=== PATIENT | female | born 1990 | race Caucasian/White ===

== ENCOUNTER → 2016-07-24 | Outpatient (CLI) | payer OTHER ==
[~2016-07-24] MED LIST: FISHOIL XX; MOTR200T44 PO; PNV-CAP5 PO; TUMS500C PO; TYLE325T5 PO
[2016-07-25 13:57] LABS: CONTROL LINE INT CTR LINE PRESENT; HIV SCRN NEGATIVE (NEGATIVE); HIV SCRN1 NEGATIVE (NEGATIVE)
== END ==
LOC: M WUC 16:25
PROVIDERS: ATTEND Specialist
DX: Z12.4 Encounter for screening for malignant neoplasm of cervix (principal); R87.610 Atypical squamous cells of undetermined significance on cytologic smear of cervix (ASC-US)
CPT/HCPCS: 36415; 86780; 87340; 87491; 87591; 87806; G0123

== ENCOUNTER 2016-08-18 18:19 | Emergency (ER) | payer OTHER ==
[2016-08-18] MEDS ORDERED: ONDANSETRON 4 MG ORAL DISINTEGRATING TAB (S0181) As Ordered ONE (19:31)
[2016-08-18] MEDS ORDERED: METHOCARBAMOL 500 MG TAB As Ordered ONE (19:32)
[2016-08-18] MEDS ORDERED: ACETAMINOPHEN 325 MG TAB As Ordered ONE (19:32)
--- NOTE | 2016-08-18 20:40 | REPUSA ---
CT of the cervical spine Clinical history: injury. Technique: Multiple axial CT images were obtained through the cervical spine without administration o f contrast. Coronal and sagittal 3-D reconstructed images were also obtained. Comparison: None. Findings: The cervical vertebral bodies are in satisfactory positioning and alignment. No fractures or dislocat ions are demonstrated. The odontoid process is intact. Intervertebral disc spaces are well-maintained . There is no evidence of facet subluxation. The neural foramen appear grossly patent. The cervical c ranial junction is intact. The cervical spinal canal demonstrates normal caliber and contour without evidence of spinal stenosis. The surrounding soft tissues are within normal limits. Impression: Unremarkable CT examination of the cervical spine.
--- NOTE | 2016-08-18 20:40 | REPUSA ---
CT of the head Clinical history: injury. Technique: Multiple axial CT images were obtained through the head without administration of contrast . Findings: The ventricles and sulci are symmetric bilaterally. There is no evidence of acute hemorrhag e or infarct. There is no midline shift, mass effect, or extra-axial fluid collection. The osseous st ructures are unremarkable. The visualized paranasal sinuses and mastoid air cells are clear. Impression: Negative study.
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
--- NOTE | 2016-08-18 21:27 | EDDOCDS ---
Physician Documentation [facility] Name: Diana Park Age: 25 yrs Sex: Female : 1990 Arrival Date: 08/18/2016 Time: 18:19 Bed I2 / M2 Private MD: Missy Serrano Disposition: 08/18/16 21:13 Discharged to Home/Self Care. Impression: Unspecified injury of head, Cervicalgia, Sprain of unspecified parts of thorax - THORACIC SPINE. - Condition is Stable. - Discharge Instructions: Back Pain, Adult, Head Injury, Pediatric, Soft Tissue Injury of the Neck. - Prescriptions for Robaxin 500 mg Oral Tablet - take 2 tablet by ORAL route every 6 hours As needed; 40 tablet. - Medication Reconciliation, Local Pharmacy Hours form. - Follow up: Missy Serrano; When: 2 - 3 days; Reason: Recheck today's complaints, Continuance of care. - Problem is new. - Symptoms have improved. Historical: - Allergies: fenoprofen (Upset stomach); Tramadol HCl (Vomit); - Home Meds: 1. pentazocine-naloxone 50-0.5 mg oral tab 1 tab 2. tizanidine 4 mg oral cap as needed - PMHx: back pain; - PSHx: LEEP Procedure; Lymph Node removal in neck; - Immunization history: Last tetanus immunization: - up to date. - Social history: Smoking status: Patient states former smoker of tobacco. No barriers to communication noted, The patient speaks fluent Nepali, Speaks appropriately for age. - Family history: Not pertinent. - Last oral intake was: 1800 today. - : The pt / caregiver states he / she is not on anticoagulants. Home medication list is obtained from the patient. - Exposure Risk Screening:: None identified. 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 5 in. (165.10 cm) (R); Pain 7/10; 21:26 BP 125 / 68; Pulse 78; Resp 18; Temp 98(T); Pulse Ox 99% on R/A; Pain 0/10; rs3 18:21 Body Mass Index 24.13 (65.77 kg, 165.10 cm) lr2 Trauma Score (Adult): 18:37 Eye Response: spontaneous(1); Verbal Response: oriented(1); Motor Response: obeys kc3 commands(2); Systolic BP: > 89 mm Hg(4); Respiratory Rate: 10 to 29 per min(4); Melville Score: 15; Trauma Score: 12 MDM: 19:22 Acetaminophen Tablet 650 mg PO once ordered. ck7 19:22 Methocarbamol 1 grams PO once ordered. ck7 19:22 Apply Sonia Collar to Patient. ordered. ck7 19:24 CT Head Without Contrast Ordered. EDMS 19:24 CT Spine,Cervical W/o Contrast Ordered. EDMS 19:24 Spine, Thoracic 3 Views Ordered. EDMS 19:28 Ondansetron ODT Oral Disintegrating Tablet 4 mg PO once ordered. rs3 19:29 UCG by Nursing ordered. ck7 21:18 Financial registration complete. Point of Care Testing: Urine : 19:43 hCG Reading: Negative; mf4 Ranges: Administered Medications: 19:28 CANCELLED (Duplicate Order): Ondansetron 4 mg IVP once rs3 19:32 Drug: Acetaminophen 650 mg [acetaminophen 325 mg tablet (2 tabs)] Route: PO; mf4 19:33 Drug: Methocarbamol 1 grams [methocarbamol 500 mg tablet (2 tabs)] Route: PO; mf4 19:33 Drug: Ondansetron ODT 4 mg [ondansetron 4 mg disintegrating tablet (1 tabs)] Route: PO; mf4 Signatures: Dispatcher [employer] EDLuciano Umana RosemaryRN RN rs3 Yaniv Disla, RPA-C RPA-Cck7 Linda Stanley,RN RN kc3 Nish Padilla LPN mf4 The chart was reviewed and I authenticate all verbal orders and agree with the evaluation and treatment provided.Corrections: (The following items were deleted from the chart) 19:28 19:22 Ondansetron 4 mg IVP once ordered. ck7 rs3 MTDD
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
--- NOTE | 2016-08-20 22:28 | EDDOCDS ---
Physician Documentation [facility] Name: Diana Park Age: 25 yrs Sex: Female : 1990 Arrival Date: 08/18/2016 Time: 18:19 Bed I2 / M2 Private MD: Missy Serrano Disposition: 08/18/16 21:13 Discharged to Home/Self Care. Impression: Unspecified injury of head, Cervicalgia, Sprain of unspecified parts of thorax - THORACIC SPINE. - Condition is Stable. - Discharge Instructions: Back Pain, Adult, Head Injury, Pediatric, Soft Tissue Injury of the Neck. - Prescriptions for Robaxin 500 mg Oral Tablet - take 2 tablet by ORAL route every 6 hours As needed; 40 tablet. - Medication Reconciliation, Local Pharmacy Hours form. - Follow up: Missy Serrano; When: 2 - 3 days; Reason: Recheck today's complaints, Continuance of care. - Problem is new. - Symptoms have improved. Historical: - Allergies: fenoprofen (Upset stomach); Tramadol HCl (Vomit); - Home Meds: 1. pentazocine-naloxone 50-0.5 mg oral tab 1 tab 2. tizanidine 4 mg oral cap as needed - PMHx: back pain; - PSHx: LEEP Procedure; Lymph Node removal in neck; - Immunization history: Last tetanus immunization: - up to date. - Social history: Smoking status: Patient states former smoker of tobacco. No barriers to communication noted, The patient speaks fluent Chinese, Speaks appropriately for age. - Family history: Not pertinent. - Last oral intake was: 1800 today. - : The pt / caregiver states he / she is not on anticoagulants. Home medication list is obtained from the patient. - Exposure Risk Screening:: None identified. 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 5 in. (165.10 cm) (R); Pain 7/10; 21:26 BP 125 / 68; Pulse 78; Resp 18; Temp 98(T); Pulse Ox 99% on R/A; Pain 0/10; rs3 18:21 Body Mass Index 24.13 (65.77 kg, 165.10 cm) lr2 Trauma Score (Adult): 18:37 Eye Response: spontaneous(1); Verbal Response: oriented(1); Motor Response: obeys kc3 commands(2); Systolic BP: > 89 mm Hg(4); Respiratory Rate: 10 to 29 per min(4); [place] Score: 15; Trauma Score: 12 MDM: 19:22 Acetaminophen Tablet 650 mg PO once ordered. ck7 19:22 Methocarbamol 1 grams PO once ordered. ck7 19:22 Apply Sonia Collar to Patient. ordered. ck7 19:24 CT Head Without Contrast Ordered. EDMS 19:24 CT Spine,Cervical W/o Contrast Ordered. EDMS 19:24 Spine, Thoracic 3 Views Ordered. EDMS 19:28 Ondansetron ODT Oral Disintegrating Tablet 4 mg PO once ordered. rs3 19:29 UCG by Nursing ordered. ck7 21:18 Financial registration complete. zo 22:03 [facility] Payment Agreement was scanned into [employer] and attached to record. zo 22:04 [facility] was scanned into [employer] and attached to record. zo 02 10:05 T-Sheet-- Draft Copy was scanned into [employer] and attached to record. Point of Care Testing: Urine : 08/18 19:43 hCG Reading: Negative; mf4 Ranges: Administered Medications: 19:28 CANCELLED (Duplicate Order): Ondansetron 4 mg IVP once rs3 19:32 Drug: Acetaminophen 650 mg [acetaminophen 325 mg tablet (2 tabs)] Route: PO; mf4 19:33 Drug: Methocarbamol 1 grams [methocarbamol 500 mg tablet (2 tabs)] Route: PO; mf4 19:33 Drug: Ondansetron ODT 4 mg [ondansetron 4 mg disintegrating tablet (1 tabs)] Route: PO; mf4 Signatures: Dispatcher [employer] EDMS Estephania Mcgovern, Reg Reg gb Luciano Bravo Rosemary, RN RN rs3 Yaniv Disla, RPA-C RPA-Cck7 Linda Stanley RN RN kc3 Nish Padilla LPN mf4 The chart was reviewed and I authenticate all verbal orders and agree with the evaluation and treatment provided.Corrections: (The following items were deleted from the chart) 19:28 19:22 Ondansetron 4 mg IVP once ordered. ck7 rs3 Attachments: 22:03 [facility] Payment Agreement zo 08/19 10:05 T-Sheet-- Draft Copy gb Chart Complete MTDD
--- NOTE | 2016-08-20 22:28 | EDDOCDS ---
Physician Documentation [facility] Name: Diana Park Age: 25 yrs Sex: Female : 1990 Arrival Date: 08/18/2016 Time: 18:19 Bed I2 / M2 Private MD: Missy Serrano Disposition: 08/18/16 21:13 Discharged to Home/Self Care. Impression: Unspecified injury of head, Cervicalgia, Sprain of unspecified parts of thorax - THORACIC SPINE. - Condition is Stable. - Discharge Instructions: Back Pain, Adult, Head Injury, Pediatric, Soft Tissue Injury of the Neck. - Prescriptions for Robaxin 500 mg Oral Tablet - take 2 tablet by ORAL route every 6 hours As needed; 40 tablet. - Medication Reconciliation, Local Pharmacy Hours form. - Follow up: Missy Serrano; When: 2 - 3 days; Reason: Recheck today's complaints, Continuance of care. - Problem is new. - Symptoms have improved. Historical: - Allergies: fenoprofen (Upset stomach); Tramadol HCl (Vomit); - Home Meds: 1. pentazocine-naloxone 50-0.5 mg oral tab 1 tab 2. tizanidine 4 mg oral cap as needed - PMHx: back pain; - PSHx: LEEP Procedure; Lymph Node removal in neck; - Immunization history: Last tetanus immunization: - up to date. - Social history: Smoking status: Patient states former smoker of tobacco. No barriers to communication noted, The patient speaks fluent Kazakh, Speaks appropriately for age. - Family history: Not pertinent. - Last oral intake was: 1800 today. - : The pt / caregiver states he / she is not on anticoagulants. Home medication list is obtained from the patient. - Exposure Risk Screening:: None identified. 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 5 in. (165.10 cm) (R); Pain 7/10; 21:26 BP 125 / 68; Pulse 78; Resp 18; Temp 98(T); Pulse Ox 99% on R/A; Pain 0/10; rs3 18:21 Body Mass Index 24.13 (65.77 kg, 165.10 cm) lr2 Trauma Score (Adult): 18:37 Eye Response: spontaneous(1); Verbal Response: oriented(1); Motor Response: obeys kc3 commands(2); Systolic BP: > 89 mm Hg(4); Respiratory Rate: 10 to 29 per min(4); [place] Score: 15; Trauma Score: 12 MDM: 19:22 Acetaminophen Tablet 650 mg PO once ordered. ck7 19:22 Methocarbamol 1 grams PO once ordered. ck7 19:22 Apply Sonia Collar to Patient. ordered. ck7 19:24 CT Head Without Contrast Ordered. EDMS 19:24 CT Spine,Cervical W/o Contrast Ordered. EDMS 19:24 Spine, Thoracic 3 Views Ordered. EDMS 19:28 Ondansetron ODT Oral Disintegrating Tablet 4 mg PO once ordered. rs3 19:29 UCG by Nursing ordered. ck7 21:18 Financial registration complete. zo 22:03 [facility] Payment Agreement was scanned into [employer] and attached to record. zo 22:04 [facility] was scanned into [employer] and attached to record. zo 02 10:05 T-Sheet-- Draft Copy was scanned into [employer] and attached to record. Point of Care Testing: Urine : 08/18 19:43 hCG Reading: Negative; mf4 Ranges: Administered Medications: 19:28 CANCELLED (Duplicate Order): Ondansetron 4 mg IVP once rs3 19:32 Drug: Acetaminophen 650 mg [acetaminophen 325 mg tablet (2 tabs)] Route: PO; mf4 19:33 Drug: Methocarbamol 1 grams [methocarbamol 500 mg tablet (2 tabs)] Route: PO; mf4 19:33 Drug: Ondansetron ODT 4 mg [ondansetron 4 mg disintegrating tablet (1 tabs)] Route: PO; mf4 Signatures: Dispatcher [employer] EDMS Estephania Mcgovern, Reg Reg gb Luciano Bravo Rosemary, RN RN rs3 Yaniv Disla, RPA-C RPA-Cck7 Linda Stanley RN RN kc3 Nish Padilla LPN mf4 The chart was reviewed and I authenticate all verbal orders and agree with the evaluation and treatment provided.Corrections: (The following items were deleted from the chart) 19:28 19:22 Ondansetron 4 mg IVP once ordered. ck7 rs3 Attachments: 22:03 [facility] Payment Agreement zo 08/19 10:05 T-Sheet-- Draft Copy gb Chart Complete MTDD
== END 2016-08-18 21:26 | disposition home or self-care (01) ==
LOC: M ED 18:19
DX: S09.90XA Unspecified injury of head, initial encounter (principal); S23.3XXA Sprain of ligaments of thoracic spine, initial encounter; V49.49XA Driver injured in collision with other motor vehicles in traffic accident, initial encounter; Y92.410 Unspecified street and highway as the place of occurrence of the external cause; Y93.89 Activity, other specified; Y99.8 Other external cause status; M54.2 Cervicalgia; Z88.5 Allergy status to narcotic agent; Z88.6 Allergy status to analgesic agent; Z87.891 Personal history of nicotine dependence

== ENCOUNTER → 2017-03-17 | Outpatient (REF) | payer OTHER, MEDICAID ==
[~2017-03-17] MED LIST changes: +BACL10TA2 PO; +HYDR-3713 PO; +MICR1TAB10 PO; +TRAZ50TA11 PO
== END ==
LOC: M LAB REF 09:31
PROVIDERS: ATTEND Specialist
DX: R87.612 Low grade squamous intraepithelial lesion on cytologic smear of cervix (LGSIL) (principal)

== ENCOUNTER 2017-05-06 02:38 | Emergency (ER) | payer MEDICAID, OTHER ==
[~2017-05-06 02:38] MED LIST changes: -BACL10TA2 PO; -HYDR-3713 PO; -MICR1TAB10 PO; -TRAZ50TA11 PO
[2017-05-06] MEDS ORDERED: BACL10TA2 PO (03:02)
[2017-05-06] MEDS ORDERED: TRAZ50TA11 PO (03:02)
[2017-05-06] MEDS ORDERED: MICR1TAB10 PO (03:02)
[2017-05-06] MEDS ORDERED: HYDR-3713 PO (03:02)
[2017-05-06] MEDS ORDERED: KETOROLAC 30 MG/ML VIAL (J1885) IV ONE (04:00)
[2017-05-06] MEDS ORDERED: NS 1,000 ML IV ONE (04:00)
[2017-05-06] MEDS ORDERED: diphenhydrAMINE INJ 50MG/ML VIAL (J1200) IV ONE (04:00)
[2017-05-06] MEDS ORDERED: METOCLOPRAMIDE INJ 10MG/2ML VIAL (J2765) IV ONE (04:00)
[2017-05-06 04:27] LABS: BASO % 0.4 % (0.0-1.0); EOS % 0.2 % (0.0-3.0); IMMATURE GRANULOCYTE % 0.2 % (0-0); LYMPH # 1.7 10^3/uL (1.5-6.5); LYMPH % 17.8 % (24.0-44.0); MEAN CORPUSCULAR HEMOGLOBIN 31.4 pg (27.0-33.0); MEAN CORPUSCULAR HGB CONC 35.7 g/dl (32.0-36.5); MONO # 0.8 10^3/uL (0.0-0.8); MONO % 8.4 % (0.0-5.0); NEUTROPHILS # 6.9 10^3/uL (1.8-7.7); PLATELET COUNT, AUTOMATED 310 10^3/uL (150-450); RED CELL DISTRIBUTION WIDTH 11.8 % (11.5-14.5); WHITE BLOOD COUNT 9.4 10^3/uL (4.0-10.0)
[2017-05-06 04:34] LABS: CONTROL LINE HCG INT CTR LINE PRESENT
[2017-05-06 04:41] LABS: ALBUMIN 4.3 GM/DL (3.2-5.2); ALBUMIN/GLOBULIN RATIO 1.23 (1.00-1.93); ALKALINE PHOSPHATASE 53 U/L (45-117); ALT/SGPT 22 U/L (12-78); ANION GAP 10 MEQ/L (8-16); AST/SGOT 12 U/L (7-37); BILIRUBIN,DIRECT 0.4 MG/DL (0.0-0.2); BILIRUBIN,TOTAL 1.7 MG/DL (0.2-1.0); BLOOD UREA NITROGEN 11 MG/DL (7-18); CALCIUM LEVEL 9.6 MG/DL (8.5-10.1); CARBON DIOXIDE LEVEL 24 MEQ/L (21-32); CHLORIDE LEVEL 106 MEQ/L (98-107); CREATININE FOR GFR 0.68 MG/DL (0.55-1.02); GLOMERULAR FILTRATION RATE > 60.0 (>60); GLUCOSE, FASTING 87 MG/DL (70-105); POTASSIUM SERUM 3.5 MEQ/L (3.5-5.1); SODIUM LEVEL 140 MEQ/L (136-145); TOTAL PROTEIN 7.8 GM/DL (6.4-8.2)
[2017-05-06 07:01] VITALS: BP 118/60
== END 2017-05-06 07:08 | disposition home or self-care (01) ==
LOC: M ED 02:38
DX: G43.909 Migraine, unspecified, not intractable, without status migrainosus (principal)
CPT/HCPCS: 80048; 80076; 83690; 84703; 85025; 96361; 96374; 96375; 99284; J1200; J1885; J2765

== ENCOUNTER 2017-06-23 01:03 | Emergency (ER) | payer OTHER ==
[2017-06-23 02:12] LABS: BASO # 0.1 10^3/uL (0.0-0.2); BASO % 0.7 % (0.0-1.0); EOS # 0.1 10^3/uL (0.0-0.50); EOS % 0.5 % (0.0-3.0); HEMATOCRIT 43.5 % (36.0-47.0); HEMOGLOBIN 15.5 g/dl (12.0-16.0); IMMATURE GRANULOCYTE % 0.3 % (0-0); LYMPH # 2.7 10^3/uL (1.5-6.5); LYMPH % 28.3 % (24.0-44.0); MEAN CORPUSCULAR HEMOGLOBIN 31.5 pg (27.0-33.0); MEAN CORPUSCULAR HGB CONC 35.6 g/dl (32.0-36.5); MEAN CORPUSCULAR VOLUME 88.4 fl (80.0-96.0); MONO # 0.7 10^3/uL (0.0-0.8); MONO % 7.6 % (0.0-5.0); NEUTROPHILS % 62.6 % (36.0-66.0); PLATELET COUNT, AUTOMATED 325 10^3/uL (150-450); RED BLOOD COUNT 4.92 10^6/uL (4.00-5.40); RED CELL DISTRIBUTION WIDTH 11.5 % (11.5-14.5); WHITE BLOOD COUNT 9.6 10^3/uL (4.0-10.0)
[2017-06-23] MEDS: NS 1,000 ML IV (02:30)
[2017-06-23 02:45] LABS: AMPHETAMINES LEVEL URINE NEGATIVE (NEGATIVE); BARBITURATES URINE NEGATIVE (NEGATIVE); BENZODIAZEPINES URINE NEGATIVE (NEGATIVE); CANNABINOIDS URINE NEGATIVE (NEGATIVE); COCAINE METABOLITE URINE NEGATIVE (NEGATIVE); METHADONE URINE NEGATIVE (NEGATIVE); OPIATES URINE NEGATIVE (NEGATIVE); PHENCYCLIDINE URINE NEGATIVE (NEGATIVE)
[2017-06-23 02:59] LABS: ALBUMIN 4.1 GM/DL (3.2-5.2); ALBUMIN/GLOBULIN RATIO 1.05 (1.00-1.93); ALKALINE PHOSPHATASE 48 U/L (45-117); ALT/SGPT 21 U/L (12-78); ANION GAP 10 MEQ/L (8-16); AST/SGOT 16 U/L (7-37); BILIRUBIN,DIRECT 0.2 MG/DL (0.0-0.2); BILIRUBIN,TOTAL 0.9 MG/DL (0.2-1.0); BLOOD UREA NITROGEN 9 MG/DL (7-18); CALCIUM LEVEL 8.6 MG/DL (8.5-10.1); CARBON DIOXIDE LEVEL 24 MEQ/L (21-32); CHLORIDE LEVEL 107 MEQ/L (98-107); CREATININE FOR GFR 0.82 MG/DL (0.55-1.02); GLOMERULAR FILTRATION RATE > 60.0 (>60); GLUCOSE, FASTING 93 MG/DL (70-105); POTASSIUM SERUM 4.5 MEQ/L (3.5-5.1); SALICYLATE LEVEL < 1.7 MG/DL (5.0-30.0); SODIUM LEVEL 141 MEQ/L (136-145)
[2017-06-23 02:59] LABS: BEDSIDE GLUCOSE 119 MG/DL (70-105)
[2017-06-23 03:20] LABS: ACETAMINOPHEN LEVEL < 2.0 UG/ML (10.0-30.0)
[2017-06-23 03:53] LABS: CONTROL LINE UCG INT CTR LINE PRESENT; URINE PREG TEST NEGATIVE (NEGATIVE)
== END 2017-06-23 13:40 | disposition home or self-care (01) ==
LOC: M ED 01:03
DX: F10.220 Alcohol dependence with intoxication, uncomplicated (principal); Y90.1 Blood alcohol level of 20-39 mg/100 ml; G43.909 Migraine, unspecified, not intractable, without status migrainosus; Z79.3 Long term (current) use of hormonal contraceptives; Z79.899 Other long term (current) drug therapy; Z88.5 Allergy status to narcotic agent
CPT/HCPCS: 80320

== ENCOUNTER → 2017-07-24 | Outpatient (CLI) | payer OTHER ==
[2017-07-24 20:08] LABS: BASO % 0.7 % (0.0-1.0); EOS # 0.1 10^3/uL (0.0-0.50); EOS % 1.7 % (0.0-3.0); HEMATOCRIT 42.6 % (36.0-47.0); HEMOGLOBIN 14.7 g/dl (12.0-16.0); IMMATURE GRANULOCYTE % 0.2 % (0-0); LYMPH # 2.3 10^3/uL (1.5-6.5); LYMPH % 38.5 % (24.0-44.0); MEAN CORPUSCULAR HGB CONC 34.5 g/dl (32.0-36.5); MEAN CORPUSCULAR VOLUME 89.9 fl (80.0-96.0); MONO # 0.5 10^3/uL (0.0-0.8); MONO % 8.1 % (0.0-5.0); NEUTROPHILS % 50.8 % (36.0-66.0); PLATELET COUNT, AUTOMATED 265 10^3/uL (150-450); RED BLOOD COUNT 4.74 10^6/uL (4.00-5.40); RED CELL DISTRIBUTION WIDTH 11.9 % (11.5-14.5); WHITE BLOOD COUNT 5.9 10^3/uL (4.0-10.0)
[2017-07-24 20:29] LABS: FOLATE 15.6 NG/ML (>5.4); VITAMIN B12 LEVEL 885 PG/ML (247-911)
[2017-07-24 20:47] LABS: ERYTHROCYTE SEDIMENTATION RATE 4 mm/hr (0-20)
[2017-07-24 21:20] LABS: ALBUMIN 4.4 GM/DL (3.2-5.2); ALBUMIN/GLOBULIN RATIO 1.26 (1.00-1.93); ALKALINE PHOSPHATASE 51 U/L (45-117); ALT/SGPT 24 U/L (12-78); ANION GAP 9 MEQ/L (8-16); AST/SGOT 10 U/L (7-37); BILIRUBIN,TOTAL 1.6 MG/DL (0.2-1.0); BLOOD UREA NITROGEN 9 MG/DL (7-18); CARBON DIOXIDE LEVEL 24 MEQ/L (21-32); CHLORIDE LEVEL 103 MEQ/L (98-107); CREATININE FOR GFR 0.73 MG/DL (0.55-1.30); GLOMERULAR FILTRATION RATE > 60.0 (>60); GLUCOSE, FASTING 74 MG/DL (70-100); POTASSIUM SERUM 4.1 MEQ/L (3.5-5.1); RHEUMATOID FACTOR QUANT < 10.0 IU/ML (0-15.0); SODIUM LEVEL 136 MEQ/L (136-145); THYROID STIMULATING HORMONE 0.608 uIU/ML (0.358-3.740); TOTAL PROTEIN 7.9 GM/DL (6.4-8.2)
[2017-07-24 23:40] LABS: ESTIMATED AVERAGE GLUCOSE 94 MG/DL (60-110); HEMOGLOBIN A1c 4.9 %
[2017-07-26 15:10] LABS: ANTI DOUBLE STRAND-DNA AB 1 IU/mL (0-9); ANTINUCLEAR ANTIBODIES DIRECT Negative (Negative); SJOGREN'S ANTI SS-A <0.2 AI (0.0-0.9); SJOGREN'S ANTI SS-B <0.2 AI (0.0-0.9)
[2017-07-29 00:07] LABS: VITAMIN B1 LEVEL WHOLE BLOOD 146.1 nmol/L (66.5-200.0)
[2017-07-29 10:08] LABS: DRVV SCREEN 42.8 SEC
[2017-07-29 11:11] LABS: ALBUMIN 4.48 GM/DL (3.29-5.55); ALBUMIN % 56.7 % (55.8-66.1); ALPHA-1-GLOBULIN % 4.6 % (2.9-4.9); ALPHA-1-GLOBULINS 0.36 GM/DL (0.17-0.41); ALPHA-2-GLOBULINS % 11.4 % (7.1-11.8); BETA-1-GLOBULINS % 6.3 % (4.7-7.2); BETA-2-GLOBULINS 0.41 GM/DL (0.19-0.55); BETA-2-GLOBULINS % 5.2 % (3.2-6.5); GAMMA GLOBULIN % 15.8 % (11.1-18.8); GAMMA GLOBULINS 1.25 GM/DL (0.65-1.58)
== END ==
LOC: M WUC 16:56
DX: G60.9 Hereditary and idiopathic neuropathy, unspecified (principal)
CPT/HCPCS: 82746

== ENCOUNTER → 2018-04-28 | Outpatient (CLI) | payer OTHER ==
[2018-04-28 17:25] LABS: BASO # 0.1 10^3/uL (0.0-0.2); BASO % 0.6 % (0.0-1.0); EOS # 0.2 10^3/uL (0.0-0.50); EOS % 2.4 % (0.0-3.0); HEMATOCRIT 43.3 % (36.0-47.0); HEMOGLOBIN 14.9 g/dl (12.0-15.5); IMMATURE GRANULOCYTE % 0.4 % (0-3.0); LYMPH # 1.8 10^3/uL (1.5-6.5); LYMPH % 23.3 % (24.0-44.0); MEAN CORPUSCULAR HEMOGLOBIN 31.7 pg (27.0-33.0); MEAN CORPUSCULAR HGB CONC 34.4 g/dl (32.0-36.5); MEAN CORPUSCULAR VOLUME 92.1 fl (80.0-96.0); MONO # 0.8 10^3/uL (0.0-0.8); MONO % 10.1 % (0.0-5.0); NEUTROPHILS % 63.2 % (36.0-66.0); PLATELET COUNT, AUTOMATED 335 10^3/uL (150-450); RED CELL DISTRIBUTION WIDTH 11.9 % (11.5-14.5); WHITE BLOOD COUNT 7.8 10^3/uL (4.0-10.0)
[2018-04-28 17:43] LABS: ESTIMATED AVERAGE GLUCOSE 94 MG/DL (60-110); HEMOGLOBIN A1c 4.9 %
[2018-04-28 18:09] LABS: ALBUMIN 3.8 GM/DL (3.2-5.2); ALBUMIN/GLOBULIN RATIO 0.95 (1.00-1.93); ALKALINE PHOSPHATASE 64 U/L (45-117); ALT/SGPT 41 U/L (12-78); ANION GAP 7 MEQ/L (8-16); AST/SGOT 14 U/L (7-37); BILIRUBIN,TOTAL 0.7 MG/DL (0.2-1.0); BLOOD UREA NITROGEN 9 MG/DL (7-18); CARBON DIOXIDE LEVEL 27 MEQ/L (21-32); CHLORIDE LEVEL 104 MEQ/L (98-107); CHOLESTEROL LEVEL 187 MG/DL (<200); CREATININE FOR GFR 0.89 MG/DL (0.55-1.30); GLOMERULAR FILTRATION RATE > 60.0 (>60); GLUCOSE, FASTING 71 MG/DL (70-100); HDL CHOLESTEROL 76 MG/DL (>40); LDL CHOLESTEROL 96 MG/DL (<100); NON-HDL-C 111 MG/DL; POTASSIUM SERUM 4.3 MEQ/L (3.5-5.1); PTH INTACT 71.4 PG/ML (18.5-88.0); SODIUM LEVEL 138 MEQ/L (136-145); TOTAL 25(OH) VITAMIN D 23.3 NG/ML (30.0-100.0); TOTAL PROTEIN 7.8 GM/DL (6.4-8.2); TRIGLYCERIDES LEVEL 75 MG/DL (<150)
== END ==
LOC: M LAB 16:09
DX: Z13.228 Encounter for screening for other metabolic disorders (principal); E55.9 Vitamin D deficiency, unspecified
CPT/HCPCS: 84443

== ENCOUNTER 2018-05-28 17:42 | Emergency (ER) | payer OTHER ==
[2018-05-28] MEDS: KETOROLAC 60 MG/2 ML VIAL (J1885) IM (18:26)
== END 2018-05-28 19:25 | disposition home or self-care (01) ==
LOC: M ED 17:42
DX: S49.92XA Unspecified injury of left shoulder and upper arm, initial encounter (principal); W19.XXXA Unspecified fall, initial encounter; Y92.9 Unspecified place or not applicable; G89.29 Other chronic pain; M54.5 Low back pain; F41.1 Generalized anxiety disorder; Z79.899 Other long term (current) drug therapy; Z87.891 Personal history of nicotine dependence
CPT/HCPCS: J1885

== ENCOUNTER → 2018-06-08 | Outpatient (REF) | payer OTHER ==
[~2018-06-08] MED LIST changes: +BACL10TA2 PO; +DULO1CAP; +HYDR-3713 PO; +MICR1TAB18 PO; +TRAZ-160 PO; +TRAZ150T90
== END ==
LOC: M SFHCPLAZ 11:49
PROVIDERS: ATTEND Nurse Practitioner Family
DX: J02.9 Acute pharyngitis, unspecified (principal)

== ENCOUNTER → 2018-07-21 | Outpatient (REF) | payer OTHER | LOC: M LAB REF 14:03 | PROVIDERS: ATTEND Specialist | DX: Z12.4 Encounter for screening for malignant neoplasm of cervix (principal) ==

== ENCOUNTER → 2018-08-26 | Outpatient (CLI) | payer OTHER ==
--- NOTE | 2018-08-27 02:24 | REP ---
Clinical: Congenital malformation . Comparison: None . Technique: PA and lateral. Findings: The mediastinum and cardiac silhouette are normal. The lung dowd are clear and without acute consolidation, effusion, or pneumothorax. The skeletal structures are intact and normal. Impression: 1. No acute cardiopulmonary process. Electronically Signed by Varinder Ruvalcaba MD 08/27/2018 02:14 A
== END ==
LOC: M SMT 10:13
PROVIDERS: ATTEND Thoracic Surgery (Cardiothoracic Vascular Surgery)
DX: Q76.6 Other congenital malformations of ribs (principal)

== ENCOUNTER → 2018-09-23 | Outpatient (CLI) | payer OTHER | LOC: M WUC 15:08 | PROVIDERS: ATTEND Internal Medicine Rheumatology | DX: R52 Pain, unspecified (principal) ==

== ENCOUNTER → 2018-10-02 | Outpatient (CLI) | payer OTHER ==
[2018-10-02 18:20] LABS: INR 1.11; PROTHROMBIN TIME 14.4 SECONDS (12.1-14.4)
== END ==
LOC: M WUC 15:07
PROVIDERS: ATTEND Physical Medicine & Rehabilitation
DX: Z01.812 Encounter for preprocedural laboratory examination (principal)